=== PATIENT | male | born 2000 | race Caucasian/White ===

== ENCOUNTER 2022-03-23 16:17 | Emergency (ER) | payer BC, SELFPAY ==
[2022-03-23 16:21] VITALS: BP 160/91; PULSE 121; RESP 18; TEMP 36.8; O2SAT 100
--- NOTE | 2022-03-23 18:04 | ED.SKABFB ---
HPI - Skin/Abscess/Foreign Bdy General Chief complaint: Skin/Abscess/Foreign Body Stated complaint: abcess to abd Time Seen by Provider: 03/23/22 17:52 Source: patient Mode of arrival: ambulatory Limitations: no limitations History of Present Illness HPI narrative: 21-year-old male presents with swelling to umbilicus x2 days. Patient states it started swelling up and became painful and red over the past 2 days. Patient denies fever. Patient states she has had this twice previously severe but drained on its own. Patient has not been on any antibiotics. MD complaint: abscess/boil Onset (ago): day(s) (2) Location: generalized (Umbilicus) Severity: mild Quality: aching Relieving factors: none Exacerbating factors: none Context: none Associated symptoms: chills Treatments prior to arrival: none Related Data Allergies Allergy/AdvReac Type Severity Reaction Status Date / Time No Known Allergies Allergy Verified 03/23/22 16:20 Review of Systems Review of Systems: All systems reviewed & are unremarkable except as noted in HPI and below Constitutional: Constitutional: Reports no additional constitutional complaints Eyes: Eyes: Reports no additional eye complaints ENT: Reports system reviewed and no additional complaints, except as documented Cardiovascular: Cardiovascular: Reports no additional cardiovascular complaints Respiratory: Respiratory: Reports no additional respiratory complaints Gastrointestinal: Gastrointestinal: Reports no additional gastrointestinal complaints Genitourinary: Genitourinary: Reports no additional male genitourinary complaints Musculoskeletal: Musculoskeletal: Reports no additional musculoskeletal complaints Integumentary/Breasts: Skin/Breast: Reports erythema Comments: Abscess to umbilicus Neurologic: Reports system reviewed and no additional complaints, except as documented Psychiatric: Psychiatric: Reports no additional psychiatric complaints Endocrine: Endocrine: Reports no additional endocrine complaints Hematologic/Lymphatic: Hematologic/Lymphatic: Reports no additional hematologic/lymphatic complaints Allergic/Immunologic: Allergic/Immunologic: Reports no additional allergic/immunologic complaints Exam Narrative: GENERAL: Well-appearing, well-nourished, and in no acute distress. HEAD: Normocephalic, atraumatic. EYES: PERRLA and EOMI. ENT: Nares clear, no rhinorrhea or epistaxis. Mucous membranes moist. NECK: Supple. CHEST: Clear to auscultation. No respiratory distress. HEART: Regular rate and rhythm. No murmur heard. Normal peripheral pulses. ABDOMEN: Soft, nontender, nondistended, normal active bowel sounds. EXTREMITIES: Normal range of motion. No edema. SKIN: Warm, dry, no rash, erythema with soft abscess to the umbilicus. No drainage NEURO: No focal deficits. Alert and oriented x3. PSYCH: Normal mood and affect. Course Course Emergency Course: Wound culture obtained will place on antibiotics Vital Signs Vital signs: Vital Signs Temperature 36.8 C 03/23/22 16:21 Pulse Rate 121 H 03/23/22 16:21 Respiratory Rate 18 03/23/22 16:21 Blood Pressure 160/91 H 03/23/22 16:21 Pulse Oximetry 100 03/23/22 16:21 Temperature 36.8 C 03/23/22 16:21 Pulse Rate 121 H 03/23/22 16:21 Respiratory Rate 18 03/23/22 16:21 Blood Pressure 160/91 H 03/23/22 16:21 Pulse Oximetry 100 03/23/22 16:21 Procedures Abscess I/D abdomen: Date of Incision: 03/23/22 Time of Incision: 18:08 Local Anesthetic: none Technique: needle aspiration and other Irrigation: No Packing used?: none I&D Results: Pus and Blood Abcess I&D Additional Comments: Area clean with Betadine. 18-gauge needle needle aspiration wound culture obtained MDM - Skin/Abscess/Foreign Bdy Differential Diagnosis Differential diagnosis: Likely abscess of skin or subcutaneous tissue and cellulitis Critical Care Time Critical Care Time Crit
== END 2022-03-23 18:37 | disposition home or self-care (01) ==
LOC: ANHED 18:23
PROVIDERS: Emergency Provider Nurse Practitioner Family
DX: L02.216 Cutaneous abscess of umbilicus (principal)
CPT/HCPCS: 10160; 87070; 87205; 99283